=== PATIENT | male | born 1955 | race Two or more races ===

== ENCOUNTER 2018-03-25 10:39 | Inpatient (IN) | payer OTHER ==
[~2018-03-25] VITALS: Ht 177.8 cm; Wt 65.8 kg
[2018-03-25] MEDS ORDERED: DIOVAN HCT 3201 EACH (11:01)
[2018-03-25] MEDS ORDERED: NORVASC5 MG (11:02)
[2018-03-25] MEDS ORDERED: ZYLOPRIM300 MG (11:02)
[2018-04-08] MEDS ORDERED: LOSARTAN-HCTZ1 EAC2 PO (10:02)
[2018-04-08] MEDS ORDERED: AMLODIPINE BESYL5 MG PO (10:02)
[2018-04-08] MEDS ORDERED: ZYLOPRIM300 MG PO (10:02)
== END 2018-04-08 11:11 | disposition home or self-care (01) | DRG 988 ==
LOC: ER 10:39 → MEDJ 18:08 → SEC-K 18:08 → MEDJ 19:50
PROVIDERS: Surgery
PROC: 30233N1 Transfusion of Nonautologous Red Blood Cells into Peripheral Vein, Percutaneous Approach (ICD-10-PCS; 2018-03-26)
PROC: BW25Y0Z Computerized Tomography (CT Scan) of Chest, Abdomen and Pelvis using Other Contrast, Unenhanced and Enhanced (ICD-10-PCS; 2018-03-26)
PROC: 0DB98ZX Excision of Duodenum, Via Natural or Artificial Opening Endoscopic, Diagnostic (ICD-10-PCS; 2018-03-30)
PROC: 0DB68ZX Excision of Stomach, Via Natural or Artificial Opening Endoscopic, Diagnostic (ICD-10-PCS; 2018-03-30)
PROC: 0DJD8ZZ Inspection of Lower Intestinal Tract, Via Natural or Artificial Opening Endoscopic (ICD-10-PCS; 2018-03-31)
PROC: BD13YZZ Fluoroscopy of Small Bowel using Other Contrast (ICD-10-PCS; 2018-03-31)
PROC: CD171ZZ Planar Nuclear Medicine Imaging of Gastrointestinal Tract using Technetium 99m (Tc-99m) (ICD-10-PCS; 2018-04-01)
PROC: 3E0336Z Introduction of Nutritional Substance into Peripheral Vein, Percutaneous Approach (ICD-10-PCS; 2018-04-02)
PROC: 0DJD8ZZ Inspection of Lower Intestinal Tract, Via Natural or Artificial Opening Endoscopic (ICD-10-PCS; 2018-04-03)
PROC: CD171ZZ Planar Nuclear Medicine Imaging of Gastrointestinal Tract using Technetium 99m (Tc-99m) (ICD-10-PCS; 2018-04-03)
PROC: 06LY3CC Occlusion of Hemorrhoidal Plexus with Extraluminal Device, Percutaneous Approach (ICD-10-PCS; 2018-04-04)
PROC: 3E0T3BZ Introduction of Anesthetic Agent into Peripheral Nerves and Plexi, Percutaneous Approach (ICD-10-PCS; 2018-04-04)
PROC: 0DJD7ZZ Inspection of Lower Intestinal Tract, Via Natural or Artificial Opening (ICD-10-PCS; 2018-04-04)
PROC: 0DBP7ZZ Excision of Rectum, Via Natural or Artificial Opening (ICD-10-PCS; principal; 2018-04-04 10:15)
DX: I12.9 Hypertensive chronic kidney disease with stage 1 through stage 4 chronic kidney disease, or unspecified chronic kidney disease (principal); N18.4 Chronic kidney disease, stage 4 (severe); K92.1 Melena; D63.1 Anemia in chronic kidney disease; M10.09 Idiopathic gout, multiple sites; D50.0 Iron deficiency anemia secondary to blood loss (chronic); K60.0 Acute anal fissure; K64.8 Other hemorrhoids; K29.80 Duodenitis without bleeding; K29.50 Unspecified chronic gastritis without bleeding

== ENCOUNTER 2020-04-09 16:03 | Inpatient (IN) | payer OTHER ==
[~2020-04-09] VITALS: Ht 177.8 cm; Wt 61.2 kg
[~2020-04-09 16:03] MED LIST: AMLODIPINE BESYL5 MG PO; DIOVAN HCT 3201 EACH; LOSARTAN-HCTZ1 EAC2 PO; NORVASC5 MG; ZYLOPRIM300 MG; ZYLOPRIM300 MG PO
[2020-04-10] MEDS ORDERED: ROCALTROL0.25 MCG PO (08:18)
== END 2020-04-18 15:40 | disposition home or self-care (01) | DRG 375 ==
LOC: ER 16:03 → MEDI 23:05
PROVIDERS: ADMIT Internal Medicine; ATTEND Internal Medicine
PROC: 30233N1 Transfusion of Nonautologous Red Blood Cells into Peripheral Vein, Percutaneous Approach (ICD-10-PCS; principal; 2020-04-10)
PROC: 0DBP8ZX Excision of Rectum, Via Natural or Artificial Opening Endoscopic, Diagnostic (ICD-10-PCS; 2020-04-14)
DX: C21.8 Malignant neoplasm of overlapping sites of rectum, anus and anal canal (principal); I12.0 Hypertensive chronic kidney disease with stage 5 chronic kidney disease or end stage renal disease; N18.5 Chronic kidney disease, stage 5; D63.1 Anemia in chronic kidney disease; E87.5 Hyperkalemia; Z21 Asymptomatic human immunodeficiency virus [HIV] infection status; K60.2 Anal fissure, unspecified; Z20.828 Contact with and (suspected) exposure to other viral communicable diseases

== ENCOUNTER 2020-05-19 05:55 | Day surgery (SDC) | payer OTHER ==
[~2020-05-19 05:55] MED LIST changes: +COZAAR50 MG PO; +ROCALTROL0.25 MCG PO
[2020-05-19] MEDS ORDERED: PERCOCET 5-3251 EACH PO (10:31)
== END 2020-05-19 13:30 | disposition home or self-care (01) ==
LOC: CIR.AMB 05:55
PROVIDERS: ATTEND Surgery
DX: C21.1 Malignant neoplasm of anal canal (principal); Z20.828 Contact with and (suspected) exposure to other viral communicable diseases
CPT/HCPCS: 36561; C1751